=== PATIENT | female | born 1935 | race Caucasian/White ===

== ENCOUNTER 2021-09-25 17:23 | Emergency (ER) | payer MEDICARE ==
[2021-09-25 18:02] VITALS: BP 111/67; PULSE 95; RESP 18; TEMP 98.2
--- NOTE | 2021-09-25 18:45 | CT ---
EXAMINATION TYPE: CT brain cspine wo con CT DLP: 1303.5 mGycm, Automated exposure control for dose reduction was used. DATE OF EXAM: 09/25/2021 6:22 PM COMPARISON: None CLINICAL INDICATION:Female, 85 years old with history of fall on thinners, -loc; Fall. TECHNIQUE: Brain: Multiple axial CT images of the brain were obtained without IV contrast. Cspine: Axial CT images from the skull base to the inferior aspect of T2 we obtained without intraven ous contrast. Coronal and sagittal reformatted images were also reviewed. FINDINGS: Brain: Extra-axial spaces: No abnormal extra-axial fluid collections. Ventricular system: Within normal limits Cerebral parenchyma: No acute intraparenchymal hemorrhage or mass effect. The duran-white junction is well differentiated. Scattered hypoattenuating areas are seen within the white matter. Cerebellum: Unremarkable. Mass effect: No evidence of midline shift. Intracranial vasculature: Atherosclerotic calcifications of the intracranial vessels. Soft tissues: Left soft tissue scalp hematoma measuring up to 31 x 10 mm. Calvarium/osseous structures: No depressed skull fracture. Paranasal sinuses and mastoid air cells: Clear. Visualized orbits: Bilateral aphakia Cervical spine: Fracture: None. Osseous structures: Multilevel degenerative disc disease changes with endplate spurring and disc oste ophyte complex's. Vertebral alignment: Within normal limits. Spinal canal/Neural Foramina: No evidence of significant spinal canal narrowing. Facet joint uncovert ebral joint arthropathy scattered throughout the cervical spine with varying degrees of neural forami nal stenosis. Neck soft tissues: Prevertebral soft tissues are within normal limits. Other: The airway is patent. The lung apices are clear. Atherosclerosis at the carotid bifurcations. IMPRESSION: 1. No acute intracranial process. 2. Left frontal scalp hematoma. 3. No evidence of cervical spine fracture. 4. Moderate multilevel degenerative disc disease. 5. Nonspecific white matter changes likely secondary to chronic small vessel ischemic disease.
[2021-09-25] MEDS ORDERED: BACITRACIN OINT 1 EACH PACKET TOPICAL ONE (19:28)
[2021-09-25] MEDS ORDERED: GELATIN SPONGE,ABSORB (SMALL) 1 EACH SPONGE TOPICAL STA (19:28)
--- NOTE | 2021-09-25 19:44 | ED ---
General Adult HPI - General Chief complaint: Head Injury Stated complaint: Fall on thinners-Head injury Time Seen by Provider: 09/25/21 18:56 Source: patient, RN notes reviewed Mode of arrival: ambulatory Limitations: no limitations - History of Present Illness Initial comments: 85-year-old female presents to the emergency department accompanied by her son for evaluation of injury to head status post trip and fall at home this afternoon. Reports falling from standing position onto concrete. Patient states she does take the blood thinning medication, Eliquis, for atrial fibrillation. Patient has a large hematoma to the left frontal scalp. Also has a scratch on the left forearm and the abrasion on the right ankle. Denies any headache, blurry vision, change in vision, dizziness, neck pain, chest pain, shortness of breath, abdominal pain, nausea, vomiting, diarrhea, or dysuria. Able to ambulate without difficulty. - Related Data Allergies Allergy/AdvReac Type Severity Reaction Status Date / Time No Known Allergies Allergy Verified 09/25/21 17:55 Review of Systems ROS Statement: Those systems with pertinent positive or pertinent negative responses have been documented in the HPI. ROS Other: All systems not noted in ROS Statement are negative. Past Medical History Past Medical History: Atrial Fibrillation History of Any Multi-Drug Resistant Organisms: None Reported Past Surgical History: No Surgical Hx Reported Past Psychological History: No Psychological Hx Reported Smoking Status: Never smoker Past Alcohol Use History: None Reported Past Drug Use History: None Reported General Exam Limitations: no limitations, physical limitation (Ambulates with cane.) General appearance: alert, in no apparent distress (Well-developed, well- nourished female in no acute distress. Initial temperature 98.2, pulse 95, respirations 18, blood pressure 111/67, pulse ox 98% on room air.) Head exam: Present: normocephalic. Absent: atraumatic (Large hematoma noted to the left frontal scalp; no depression upon palpation of scalp; no tenderness aside from hematoma) Eye exam: Present: normal appearance, PERRL, EOMI. Absent: scleral icterus, conjunctival injection, nystagmus, periorbital swelling ENT exam: Present: normal exam, normal oropharynx, mucous membranes moist, TM's normal bilaterally Neck exam: Present: normal inspection, full ROM, other (no cervical vertebral tenderness). Absent: tenderness, meningismus, lymphadenopathy Respiratory exam: Present: normal lung sounds bilaterally. Absent: respiratory distress, wheezes, rales, rhonchi, stridor, chest wall tenderness Cardiovascular Exam: Present: regular rate, irregular rhythm, normal heart sounds. Absent: systolic murmur, diastolic murmur, rubs, gallop, clicks GI/Abdominal exam: Present: soft, normal bowel sounds. 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 Absent: tenderness, swelling Hand Wrist exam: Present: normal inspection, full ROM Neuro motor exam: Present: wrist extension intact Vascular: Present: normal capillary refill, radial pulse. Absent: vascular compromise, Pallo Right Ankle exam: Present: full ROM, abrasion (small abrasion to anterior ankle; small area of oozing noted despite compression dressing. Gelfoam applied with hemostasis and covered with dressing.). Absent: tenderness, swelling Foot/Toe exam: Present: normal inspection, full ROM. Absent: tenderness, swelling Neurovascular tendon exam: Present: no vascular compromise. Absent: motor deficit, sensory deficit, tendon deficit Back exam: Present: normal inspection, full ROM. Absent: tenderness, paraspinal tenderness, vertebral tenderness Neurological exam: Present: alert, oriented X3, CN II-XII intact Psychiatric exam: Present: normal affect, normal mood Course Vital Signs 09/25/21 17:55 Temperature 98.2 F Pulse Rate 95 Respiratory 18 Rate Blood Pressure 111/67 O2 Sat by Pulse 98 Oximetry Medical Decision Making - Medical Decision Making 85-year-old female with a past medical history of atrial fibrillation and anticoagulant use presents to the emergency department for evaluation status post fall. Upon exam, patient is noted to be alert, oriented, and acting appropriately. She is able to ambulate without difficulty. She is neurologically intact with no focal deficits. She does have a large hematoma to the left frontal scalp. Extraocular movements are intact. Also has a abrasion on the left forearm and skin tear that continued to ooze on the right ankle. CT of the brain and C-spine are unremarkable. Wound to the left forearm was gently cleansed and bacitracin dressing applied. Small piece of Gelfoam applied to area of bruising on right ankle. Patient encouraged to take Tylenol if needed for discomfort. Suggested ice application to hematoma. Patient is staying with her son at this time as she is on vacation. She will be discharged home to follow-up with her PCP on Wednesday. Return parameters discussed in detail. Patient and family verbalized understanding and agreed with this plan. Attending: Pascual. - Radiology Data Radiology results: report reviewed, image reviewed CT of the brain and C-spine without contrast was obtained. Report was reviewed in its entirety. Impression per Dr. Benitez is #1. No acute cranial process. #2. Left frontal scalp hematoma. #3. No evidence of cervical spine fracture. #4. Moderate multilevel degenerative disc disease. #5. Nonspecific white matter changes likely secondary to chronic small vessel ischemic disease. Disposition Clinical Impression: Scalp hematoma, Abrasion of left arm, Skin tear Disposition: HOME SELF-CARE Condition: Stable Instructions (If sedation given, give patient instructions): Abrasion (ED), Skin Tear (ED), Safe Use of Anticoagulants (ED), Hematoma (ED) Additional Instructions: Gelfoam applied to left ankle will absorb; please do not pick or attempt to remove it. Gently cleanse the abrasion on the left forearm with mild soap and water. May apply triple antibiotic ointment once daily. Take Tylenol if needed for headache or discomfort related to head injury. Apply ice to area of swelling if able to tolerate. Please follow-up with your PCP for a recheck on Wednesday. Return to the emergency department with any new, worsening, or concerning symptoms such as confusion, blurry vision, or dizziness. Is patient prescribed a controlled substance at d/c from ED?: No Referrals: Nonstaff,Physician [Primary Care Provider] - 1-2 days
== END 2021-09-25 20:30 | disposition home or self-care (01) ==
LOC: EC 17:23
DX: S00.03XA Contusion of scalp, initial encounter (principal); S40.812A Abrasion of left upper arm, initial encounter; W22.09XA Striking against other stationary object, initial encounter
CPT/HCPCS: 70450; 72125